=== PATIENT | male | born 1960 ===

== ENCOUNTER → 2024-07-07 08:57 | Outpatient (REF) | payer MEDICARE, BC, SELFPAY ==
[2024-07-07 12:04] LABS: Blood Urea Nitrogen 17 mg/dl (9-20); Calcium 9.5 mg/dl (8.4-10.2); Carbon Dioxide 28 mmol/L (22-30); Chloride 100 mmol/L (98-107); Glucose 118 mg/dl (70-99); Potassium 4.4 mmol/L (3.5-5.1); Sodium 138 mmol/L (135-145); eGFR > 60.00
== END ==
LOC: HWLAB 08:57
PROVIDERS: ATTENDING PHYSICIAN Surgery; FAMILY PHYSICIAN Student in an Organized Health Care Education/Training Program
DX: M79.89 Other specified soft tissue disorders (principal)
CPT/HCPCS: 36415; 80048

== ENCOUNTER → 2024-07-19 15:24 | Outpatient (REF) | payer MEDICARE, BC, SELFPAY | LOC: RAD 15:24 | PROVIDERS: ATTENDING PHYSICIAN Surgery; FAMILY PHYSICIAN Student in an Organized Health Care Education/Training Program | DX: M79.89 Other specified soft tissue disorders (principal) | CPT/HCPCS: 74177; Q9967 ==

== ENCOUNTER 2024-09-13 06:11 | Day surgery (SDC) | payer MEDICARE, BC, SELFPAY ==
[2024-09-13 06:15] VITALS: BP 160/107; BMI 31.5
[2024-09-13 06:20] VITALS: BMI 31.5
[2024-09-13 06:27] VITALS: BMI 31.5
[2024-09-13] MEDS: HEPARIN 5000 UNITS SC (06:30)
[2024-09-13] MEDS: TYLENOL 1000 MG PO (06:30)
[2024-09-13] MEDS: NORMOSOL-R/PLASMALYTE-A 1000 IV (06:32)
--- NOTE | 2024-09-13 08:02 | OR.RPT ---
Operative Report
Operative Report
Primary Surgeon: Nelly
Assisting: Aleja HAYWOOD
Pre-op Diagnosis: Right flank lipoma
Post-op Diagnosis: Same
Procedure Performed: Excision right flank lipoma
Anesthesia Type: MAC local
Specimen / Cultures: Lipoma
Estimated Blood Loss: 15cc
Complications: None immediate
Operative Findings: 18cm x 15cm x 8cm lipoma excised in toto with island of skin
Date of Surgery: 09/13/24
Indications: This 64M developed a right flank lipoma and open excision was elected.
PROCEDURE: After informed consent was obtained, the patient was marked in the preoperative area and brought to the operative suite and placed in left lateral decubitus on the operating table. The patient was sedated, prepped and draped in the usual
sterile manner and an adequate local anesthetic was administered using lidocaine 1% with epi.
A full thickness elliptical umbilical incision was made over the mass, and dissection was carried down to the capsule with Bovie electrocautery. The capsule was dissected free of surrounding attachments with blunt dissection and electrocautery.
Ultimately it was undermined with similar technique until it was excised in toto and passed off the table as specimen.
The wound was then irrigated with copious sterile saline, and hemostasis was obtained using Bovie electrocautery. The skin was approximated with 3-0 Vicryl deep dermal interrupted sutures and 4-0 monocryl suture in a subcuticular fashion. Topical
skin glue was then applied. All surgical counts were reported as correct.
The patient tolerated the procedure well and was taken to the PACU in stable condition.
[2024-09-13 08:07] VITALS: BP 123/85
[2024-09-13 08:15] VITALS: BP 135/88
[2024-09-13 08:30] VITALS: BP 133/94
[2024-09-13 08:45] VITALS: BP 140/86
== END 2024-09-13 09:08 | disposition home or self-care (01) ==
LOC: SDS 06:11
PROVIDERS: ATTENDING PHYSICIAN Surgery
DX: D17.1 Benign lipomatous neoplasm of skin and subcutaneous tissue of trunk (principal); L82.1 Other seborrheic keratosis
CPT/HCPCS: 21931; 88304